=== PATIENT | female | born 1970 | race Caucasian/White ===

== ENCOUNTER 2016-06-22 17:35 | Emergency (ER) | payer OTHER ==
[~2016-06-22] VITALS: Ht 170.2 cm; Wt 65.8 kg
--- NOTE | ~2016-06-22 | EKG ---
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[facility] : 1970 Requested By: Suzan Loera Order Number: [id number] MD: Ricardo Avitia Measurements Intervals [place] Rate: 104 P: 78 [place]: 152 QRS: 57 QRSD: 87 T: 57 QT: 348 QTc: 458 Interpretive Statements Sinus tachycardia Baseline wander in lead(s) V1 Compared to ECG 08/03/2014 16:48:56 Sinus rhythm no longer present Electronically Signed On 06-24-2016 14:53:34 CDT by Ricardo Avitia [email or web address] <ELECTRONICALLY SIGNED> By: Ricardo Avitia MD, [facility] 06/24/16 1453 D: 04/1737 37 Ricardo Avitia MD, FACC /EPI
[~2016-06-22 17:35] MED LIST: AUGMENTIN 875875 MG PO; IBUPROFEN 600600 M1 PO; IBUPROFEN 800800 MG PO; NORCO 5-325 TA1 EACH PO; NORFLEX100 MG PO; TRAMADOL 50 MG50 MG PO; ZOFRAN4 MG PO
[2016-06-22 19:20] VITALS: BP 132/94
== END 2016-06-22 19:21 | disposition home or self-care (01) ==
LOC: ER 17:35
DX: R07.89 Other chest pain (principal); F10.120 Alcohol abuse with intoxication, uncomplicated; S90.511A Abrasion, right ankle, initial encounter; E78.5 Hyperlipidemia, unspecified; I10 Essential (primary) hypertension; Z88.6 Allergy status to analgesic agent; F17.210 Nicotine dependence, cigarettes, uncomplicated; W18.39XA Other fall on same level, initial encounter; Y93.89 Activity, other specified; Y92.89 Other specified places as the place of occurrence of the external cause; Y99.8 Other external cause status

== ENCOUNTER 2016-09-13 18:27 | Emergency (ER) | payer OTHER ==
[~2016-09-13] VITALS: Ht 170.2 cm; Wt 61.2 kg
[2016-09-13 18:33] VITALS: BP 120/85
== END 2016-09-13 19:15 | disposition home or self-care (01) ==
LOC: ER 18:27
DX: L30.9 Dermatitis, unspecified (principal); E78.00 Pure hypercholesterolemia, unspecified; F17.210 Nicotine dependence, cigarettes, uncomplicated; F10.99 Alcohol use, unspecified with unspecified alcohol-induced disorder; Z88.6 Allergy status to analgesic agent

== ENCOUNTER 2016-11-09 15:48 | Inpatient (IN) | payer OTHER ==
[2016-11-09] VITALS (22 sets, daily range): BP systolic 101–141; BP diastolic 61–119
[~2016-11-09] VITALS: Ht 152.4 cm; Wt 60.2 kg
--- NOTE | ~2016-11-09 | HC ---
[facility] [place] [address] CONSULTATION Name: HOA GLEZ Room #: 247-P [facility] IN M.R.#: [id number] Admission: 11/09/16 Attend Phys: Wilian Carlos Discharge: Date of : 72 Report #: [id number] THIS REPORT FOR: //name// CC: Allen Carlos HISTORY OF PRESENT ILLNESS: This is a 46-year-old female with a history of alcohol dependence, drinks about a bottle of wine a day according to records. The patient says that she is doing well now. She is denying any signs of withdrawal. She denies review of systems for jaye, depression, OCD, phobic features. She is calm, pleasant. She did have a fall and she likely was drinking at that time and that was part of that fall. We discussed different treatment options including a connection to [facility] and I gave her that referral. She can follow up with her [facility] inpatient program. Also have chemical assistance such as naltrexone, Vivitrol, Campral, and disulfiram can all be prescribed in the future. She does not want any of that at this point and she is going to be discharged. She does not feel that she is a danger to herself. She is denying any type of imminent risk factors. Her vitals are fairly stable. She shows no signs of severe withdrawal, no severe tremor or diaphoresis. She denies headache. Pulse is steady. She has had very little Ativan today. PAST PSYCHIATRIC HISTORY: She says she does not have a history of depression. She has a history of some mild anxiety, but nothing more than that, and alcohol issues. FAMILY PSYCHIATRIC HISTORY: Mom and grandmother are alcoholic. SOCIAL HISTORY: The patient is unemployed, has a boyfriend, in a custody li with her and that has been stressful, but she says even with that, she is not a danger to herself. She is calm. She is appropriate, denying drugs. MENTAL STATUS EXAMINATION: She does have cuts over her left eye where she fell. She is calm. She is pleasant. Linear thought process. Thought content, no suicidal or homicidal, delusions or perceptual substances. Alert and oriented x 4. Thought process linear. No psychosis. She is denying suicidal or homicidal thoughts. She feels stable. She agrees to abide by safety plan, avoiding drugs and alcohol, following up with outpatient treatment, considering options we had discussed but she wants nothing aggressive from us or treatments. She is willing she wants to be discharged. Insight and judgment is good in terms of what we discussed today, possibly some impairment in sticking to those plans and sticking to abstinence which is unfortunately part of the addictive process. ASSETS AND LIABILITIES: She has a history of good support from her boyfriend. She has a stable living environment. Liabilities include alcohol use and stress of this court custody issue. [address] [address] CONSULTATION Name: HOA GLEZ Room #: 247-P [facility] IN M.R.#: [id number] Admission: 11/09/16 Attend Phys: Wilian Carlos Discharge: Date of : 72 Report #: [id number] IMPRESSION: AXIS I: 1. Anxiety, otherwise specified. 2. Alcohol dependence. AXIS II: Deferred. AXIS III: No active issues. She does not appear to be in severe withdrawal at this time or significant withdrawal at this time. The only thing elevated is the diastolic part of her blood pressure, pulse is stable. No signs of diaphoresis, no headache, no tremor. AXIS V: Global Assessment of Functioning 50%. PLAN: At this point, I have explained to the patient different options for treatment. She is willing to consider them, but she is only going to consider them at this point. She will return to . She will try to seek abstinence, how aggressive she will seek that, it is up to her. She definitely can decide from my standpoint whether to leave the hospital and if she feels stable and there is no medical issue to keep her here, we have no ability to hold someone against her will and if there is no medical urgency or psychiatric urgency, so she may leave the hospital under her own advice. At this point, I do not feel there is a point to keep her as she is stable and she is going to come back to the hospital if her withdrawal were to worsen. Thank you for the consultation. No medications were recommended to this patient. She may be discharged once deemed medically stable. Thank you for the consult. Call us again if needed. By: [id number] Mando Mullins MD /lane
[2016-11-09 16:23] LABS: HEMATOCRIT 40.1 % (37.0-47.0); HEMOGLOBIN 13.9 gm/dL (12.0-15.0); MANUAL DIFF YES; MCH 38.1 pg (26.0-34.0); MCHC 34.7 g/dL (28.0-37.0); PLATELET COUNT 129 thou/uL (150-400); RBC 3.65 mil/uL (4.20-5.00); RDW 15.1 % (10.5-14.5)
[2016-11-09 16:35] LABS: ANION GAP 12 mmol/L (7-16); BUN 6 mg/dL (7-18); CALCIUM 9.9 mg/dL (8.5-10.1); CHLORIDE 99 mmol/L (98-107); CO2 24 mmol/L (21-32); CREATININE 0.8 mg/dL (0.6-1.0); GLUCOSE 101 mg/dL (74-106); POTASSIUM 3.5 mmol/L (3.5-5.1); SODIUM 135 mmol/L (136-145)
[2016-11-09 16:40] LABS: ALBUMIN 4.5 g/dL (3.4-5.0); ALKALINE PHOSPHATASE 61 U/L (46-116); SALICYLATE < 2.8 mg/dL (2.8-20.0); SGOT 121 U/L (15-37); SGPT 70 U/L (30-65); TOTAL BILIRUBIN 1.4 mg/dL (<0.1-1.0); TOTAL PROTEIN 8.1 g/dL (6.4-8.2)
[2016-11-09 16:46] LABS: ABSOLUTE NEUTROPHILS 3.1 thou/uL (1.4-8.2); TOTAL CELL COUNT 100
[2016-11-09 16:47] LABS: MACROCYTES 1+
[2016-11-09 19:04] LABS: FOLIC ACID 9.5 ng/mL (8.6-58.9)
[2016-11-10] VITALS (48 sets, daily range): BP systolic 88–153; BP diastolic 60–109
[2016-11-10 04:09] LABS: FREE T4 0.94 ng/dL (0.82-1.77)
[2016-11-10] MEDS ORDERED: NOHOMEMEDICATIONS (18:53)
[2016-11-11] VITALS: BP 129/79
[2016-11-11 03:44] VITALS: BP 127/86
[2016-11-11 05:54] LABS: ALBUMIN 3.7 g/dL (3.4-5.0); CALCIUM 9.1 mg/dL (8.5-10.1); CREATININE 0.4 mg/dL (0.6-1.0); MAGNESIUM 1.8 mg/dL (1.8-2.4); POTASSIUM 3.6 mmol/L (3.5-5.1); TOTAL BILIRUBIN 1.2 mg/dL (<0.1-1.0); TOTAL PROTEIN 7.1 g/dL (6.4-8.2)
[2016-11-11 08:59] VITALS: BP 110/71
[2016-11-11] MEDS ORDERED: PRENATAL PO (09:12)
[2016-11-11] MEDS ORDERED: VITAMIN B-1100 M2 PO (09:12)
[2016-11-11 09:20] VITALS: BP 127/86
[2016-11-11 09:40] VITALS: BP 127/86
== END 2016-11-11 09:40 | disposition home or self-care (01) | DRG 897 ==
LOC: ER 15:48 → EROBS 18:05 → ICU 19:01
PROVIDERS: Hospitalist; Physician Assistant
PROC: 0HQ1XZZ Repair Face Skin, External Approach (ICD-10-PCS; principal; 2016-11-09)
DX: F10.239 Alcohol dependence with withdrawal, unspecified (principal); E78.00 Pure hypercholesterolemia, unspecified; S01.112A Laceration without foreign body of left eyelid and periocular area, initial encounter; S09.90XA Unspecified injury of head, initial encounter; F41.9 Anxiety disorder, unspecified; Z23 Encounter for immunization; Z88.6 Allergy status to analgesic agent; W18.39XA Other fall on same level, initial encounter; Y93.89 Activity, other specified; Y92.092 Bedroom in other non-institutional residence as the place of occurrence of the external cause; Y99.8 Other external cause status
CPT/HCPCS: 10196

== ENCOUNTER 2017-07-12 11:51 | Emergency (ER) | payer OTHER ==
[~2017-07-12] VITALS: Ht 170.2 cm; Wt 61.2 kg
[~2017-07-12 11:51] MED LIST changes: +ATIVAN1 MG PO; +NOHOMEMEDICATIONS; +PRENATAL PO; +VITAMIN B-1100 M2 PO
[2017-07-12 12:52] LABS: ABSOLUTE NEUTROPHILS 2.7 thou/uL (1.4-8.2); EOSINOPHILS 0.7 % (0.0-3.0); HEMATOCRIT 39.8 % (37.0-47.0); HEMOGLOBIN 13.7 gm/dL (12.0-15.0); LYMPHOCYTES 17.8 % (24.0-44.0); MCH 38.1 pg (26.0-34.0); MCHC 34.5 g/dL (28.0-37.0); MCV 110.5 fL (80.0-100.0); MONOCYTES 2.9 % (1.0-8.0); PLATELET COUNT 113 thou/uL (150-400); POLYS 77.6 % (36.0-66.0); RDW 13.7 % (10.5-14.5); WBC 3.4 thou/uL (4.0-11.0)
[2017-07-12 13:00] LABS: CALCIUM 9.4 mg/dL (8.5-10.1); CREATININE 0.6 mg/dL (0.6-1.0); POTASSIUM 3.5 mmol/L (3.5-5.1)
[2017-07-12 13:48] LABS: ANISOCYTOSIS 1+; MACROCYTES 2+; PLATELET ESTIMATE NORMAL
[2017-07-12] MEDS ORDERED: PREDNISONE 20 M20 M1 PO (15:05)
== END 2017-07-12 15:06 | disposition home or self-care (01) ==
LOC: ER 11:51
PROVIDERS: Emergency Medicine
DX: L53.2 Erythema marginatum (principal); E78.00 Pure hypercholesterolemia, unspecified; F17.210 Nicotine dependence, cigarettes, uncomplicated

== ENCOUNTER 2017-07-21 22:17 | Emergency (ER) | payer OTHER ==
[~2017-07-21] VITALS: Ht 170.2 cm; Wt 61.2 kg
[~2017-07-21 22:17] MED LIST changes: +PREDNISONE 20 M20 M1 PO
[2017-07-21] MEDS ORDERED: PREDNISONE 20 M20 MG PO (23:04)
== END 2017-07-21 23:29 | disposition home or self-care (01) ==
LOC: ER 22:17
DX: L53.2 Erythema marginatum (principal); E78.00 Pure hypercholesterolemia, unspecified; F17.210 Nicotine dependence, cigarettes, uncomplicated; Z88.6 Allergy status to analgesic agent

== ENCOUNTER 2017-07-30 23:37 | Emergency (ER) | payer OTHER ==
[~2017-07-30] VITALS: Ht 170.2 cm; Wt 63.5 kg
[~2017-07-30 23:37] MED LIST changes: +PREDNISONE 20 M20 MG PO
== END 2017-07-31 00:58 | disposition left against medical advice (07) ==
LOC: ER 23:37
DX: S16.1XXA Strain of muscle, fascia and tendon at neck level, initial encounter (principal); E78.00 Pure hypercholesterolemia, unspecified; E78.5 Hyperlipidemia, unspecified; F17.210 Nicotine dependence, cigarettes, uncomplicated; Z88.6 Allergy status to analgesic agent; Y04.8XXA Assault by other bodily force, initial encounter; Y93.89 Activity, other specified; Y92.89 Other specified places as the place of occurrence of the external cause; Y99.8 Other external cause status

== ENCOUNTER 2017-08-23 12:03 | Emergency (ER) | payer OTHER ==
[~2017-08-23] VITALS: Ht 170.2 cm; Wt 63.5 kg
[2017-08-23] MEDS ORDERED: ZYRTEC10 M2 PO (13:06)
== END 2017-08-23 13:37 | disposition home or self-care (01) ==
LOC: ER 12:03
DX: L53.2 Erythema marginatum (principal); E78.00 Pure hypercholesterolemia, unspecified; F17.210 Nicotine dependence, cigarettes, uncomplicated; Z88.8 Allergy status to other drugs, medicaments and biological substances

== ENCOUNTER 2018-02-16 18:30 | Emergency (ER) | payer OTHER ==
[~2018-02-16] VITALS: Ht 170.2 cm; Wt 62.1 kg
--- NOTE | ~2018-02-16 | EKG ---
[address] [address] ELECTROCARDIOGRAM REPORT Name: HOA GLEZ [facility] [id number] Admission: 02/16/18 Attend Phys: Discharge: 02/16/18 Date of : 72 Report #: [id number] THIS REPORT FOR: //name// [facility] ED Test Date: 2018-02-16 Test Time: 18:49:34 Pat Name: HOA GLEZ Department: Room: Gender: F [employer] Supervisor: [employer] : 1970 Requested By: Alexander Horn Order Number: [id number] MD: Ricardo Avitia Measurements Intervals [place] Rate: 99 P: 71 CT: 152 QRS: 52 QRSD: 81 T: 38 QT: 345 QTc: 443 Interpretive Statements Sinus rhythm Normal tracing Compared to ECG 06/22/2016 17:38:11 Sinus tachycardia no longer present Electronically Signed On 02-17-2018 8:54:44 CONTROL ELECTRICIAN by Ricardo Avitia [email or web address] <ELECTRONICALLY SIGNED> By: Ricardo Avitia MD, [facility] 02/17/18 0854 1849 1849 Ricardo Avitia MD, FACC /EPI
[~2018-02-16 18:30] MED LIST changes: +ZYRTEC10 M2 PO
[2018-02-16] MEDS ORDERED: TRIAMCINOLONE A80 G2 TOP (19:38)
[2018-02-16 19:41] VITALS: BP 132/103
== END 2018-02-16 19:42 | disposition left against medical advice (07) ==
LOC: ER 18:30
DX: R07.2 Precordial pain (principal); F17.210 Nicotine dependence, cigarettes, uncomplicated; E78.00 Pure hypercholesterolemia, unspecified; L40.9 Psoriasis, unspecified; Z88.6 Allergy status to analgesic agent

== ENCOUNTER 2018-04-14 17:47 | Emergency (ER) | payer OTHER ==
[~2018-04-14] VITALS: Ht 170.2 cm; Wt 61.2 kg
[~2018-04-14 17:47] MED LIST changes: +TRIAMCINOLONE A80 G2 TOP
[2018-04-14 21:41] VITALS: BP 115/61
== END 2018-04-14 22:01 | disposition home or self-care (01) ==
LOC: ER 17:47
DX: S22.31XA Fracture of one rib, right side, initial encounter for closed fracture (principal); E78.00 Pure hypercholesterolemia, unspecified; F17.210 Nicotine dependence, cigarettes, uncomplicated; Z88.8 Allergy status to other drugs, medicaments and biological substances; W00.0XXA Fall on same level due to ice and snow, initial encounter; Y93.89 Activity, other specified; Y92.89 Other specified places as the place of occurrence of the external cause; Y99.8 Other external cause status

== ENCOUNTER 2019-10-30 20:58 | Emergency (ER) | payer OTHER ==
[~2019-10-30] VITALS: Ht 165.1 cm; Wt 63.5 kg
[2019-10-30 21:32] LABS: ABSOLUTE NEUTROPHILS 2.6 thou/uL (1.4-8.2); HEMATOCRIT 39.2 % (37.0-47.0); HEMOGLOBIN 13.5 gm/dL (12.0-15.0); LYMPHOCYTES 31.6 % (24.0-44.0); MCH 37.3 pg (26.0-34.0); MCHC 34.4 g/dL (28.0-37.0); MCV 108.4 fL (80.0-100.0); MONOCYTES 10.3 % (1.0-8.0); PLATELET COUNT 158 thou/uL (150-400); POLYS 56.1 % (36.0-66.0); RBC 3.61 mil/uL (4.20-5.00); RDW 15.1 % (10.5-14.5); WBC 4.6 thou/uL (4.0-11.0)
[2019-10-30 21:41] LABS: CALCIUM 9.7 mg/dL (8.5-10.1); CREATININE 0.7 mg/dL (0.6-1.0)
[2019-10-30 21:48] LABS: ALBUMIN 4.4 g/dL (3.4-5.0); DIRECT BILIRUBIN 0.2 mg/dL (<0.1-0.2); TOTAL PROTEIN 8.7 g/dL (6.4-8.2)
[2019-10-31] MEDS ORDERED: MOBIC15 MG PO (00:10)
[2019-10-31 00:52] VITALS: BP 117/82
== END 2019-10-31 00:46 | disposition home or self-care (01) ==
LOC: ER 20:58
PROVIDERS: Emergency Medicine
DX: S40.211A Abrasion of right shoulder, initial encounter (principal); R56.9 Unspecified convulsions; E78.00 Pure hypercholesterolemia, unspecified; F17.210 Nicotine dependence, cigarettes, uncomplicated; Z88.6 Allergy status to analgesic agent; W18.39XA Other fall on same level, initial encounter; Y93.89 Activity, other specified; Y92.89 Other specified places as the place of occurrence of the external cause; Y99.0 Civilian activity done for income or pay

== ENCOUNTER 2019-12-09 21:46 | Emergency (ER) | payer OTHER ==
[~2019-12-09] VITALS: Ht 170.2 cm; Wt 68.0 kg
[~2019-12-09 21:46] MED LIST changes: +MOBIC15 MG PO
[2019-12-09] MEDS ORDERED: NORCO 5-325 TA1 EAC2 PO ×2 (23:48→23:56)
[2019-12-10 00:07] VITALS: BP 150/88
== END 2019-12-10 00:08 | disposition home or self-care (01) ==
LOC: ER 21:46
DX: S62.630A Displaced fracture of distal phalanx of right index finger, initial encounter for closed fracture (principal); S60.121A Contusion of right index finger with damage to nail, initial encounter; E78.00 Pure hypercholesterolemia, unspecified; L40.9 Psoriasis, unspecified; F17.210 Nicotine dependence, cigarettes, uncomplicated; Z90.11 Acquired absence of right breast and nipple; Z88.6 Allergy status to analgesic agent; W23.0XXA Caught, crushed, jammed, or pinched between moving objects, initial encounter; Y93.89 Activity, other specified; Y92.89 Other specified places as the place of occurrence of the external cause; Y99.8 Other external cause status

== ENCOUNTER 2020-05-06 08:43 | Emergency (ER) | payer OTHER ==
[~2020-05-06] VITALS: Ht 170.2 cm; Wt 65.8 kg
[~2020-05-06 08:43] MED LIST changes: +NORCO 5-325 TA1 EAC2 PO
[2020-05-06] MEDS ORDERED: NORCO5 PO (10:09)
[2020-05-06 10:15] VITALS: BP 148/91
== END 2020-05-06 10:39 | disposition home or self-care (01) ==
LOC: ER 08:43
DX: S22.41XA Multiple fractures of ribs, right side, initial encounter for closed fracture (principal); F17.210 Nicotine dependence, cigarettes, uncomplicated; E78.5 Hyperlipidemia, unspecified; Z79.899 Other long term (current) drug therapy; Z88.8 Allergy status to other drugs, medicaments and biological substances; W10.9XXA Fall (on) (from) unspecified stairs and steps, initial encounter; Y93.89 Activity, other specified; Y92.89 Other specified places as the place of occurrence of the external cause; Y99.8 Other external cause status

== ENCOUNTER 2020-06-18 18:40 | Emergency (ER) | payer OTHER ==
[~2020-06-18] VITALS: Ht 170.2 cm; Wt 68.0 kg
[~2020-06-18 18:40] MED LIST changes: +NORCO5 PO
[2020-06-18] MEDS ORDERED: NEOMYC-POLYM-DEX5 ML OPHTHALMIC (19:38)
== END 2020-06-18 19:51 | disposition home or self-care (01) ==
LOC: ER 18:40
DX: H10.9 Unspecified conjunctivitis (principal); F17.210 Nicotine dependence, cigarettes, uncomplicated; Z88.6 Allergy status to analgesic agent

== ENCOUNTER 2021-02-13 15:38 | Emergency (ER) | payer OTHER ==
[~2021-02-13] VITALS: Ht 170.2 cm; Wt 68.0 kg
[~2021-02-13 15:38] MED LIST changes: +NEOMYC-POLYM-DEX5 ML OPHTHALMIC
[2021-02-13 15:40] VITALS: BP 132/97
== END 2021-02-13 23:53 | disposition home or self-care (01) ==
LOC: ER 15:38
DX: Z48.00 Encounter for change or removal of nonsurgical wound dressing (principal); Z53.21 Procedure and treatment not carried out due to patient leaving prior to being seen by health care provider; Z85.3 Personal history of malignant neoplasm of breast; Z90.11 Acquired absence of right breast and nipple; Z88.8 Allergy status to other drugs, medicaments and biological substances